=== PATIENT | male | born 1960 | race Caucasian/White ===

== ENCOUNTER 2024-10-17 11:00 | Inpatient (IN) | payer MEDICARE, BC ==
[~2024-10-17] VITALS: Ht 172.7 cm; Wt 81.4 kg
[2024-10-17] VITALS (11 sets, daily range): BP systolic 113–150; BP diastolic 56–84; PULSE 61–90; RESP 10–17; TEMP 97.6–98.4; O2SAT 92–98
--- NOTE | 2024-10-17 11:29 | ELECTROCARDIOGRAPH REPORT ---
[facility] Test Date: 2024-10-17 Test Time: 11:26:45 Pat Name: KUSHAL MELENDEZ Department: SHORT STAY 1ST FLOOR Room: [facility] IN [facility] Gender: M Bioinformatics Associate: IZABEL : 1960 Requested By: MANUELA VICK Order Number: [id number] Reading MD: Dr. SIMI Silvestre Measurements Intervals [place] Rate: 64 P: 39 W[place]: 155 QRS: 5 QRSD: 104 T: 41 QT: 424 QTc: 438 Interpretive Statements Sinus rhythm Electronically Signed On 10-17-2024 16:49:[address] SIMI Silvestre Please click the below link to view image of tracing.
[2024-10-17] MEDS ORDERED: ROSU10TA72 PO (11:50)
[2024-10-17] MEDS ORDERED: CHOL20002 PO (11:50)
[2024-10-17] MEDS ORDERED: LISI10TA27 PO (11:50)
[2024-10-17] MEDS ORDERED: GLUC500T12 PO (11:52)
[2024-10-17] MEDS ORDERED: OMEG1CAP46 PO (11:53)
[2024-10-17] MEDS ORDERED: SACC250C9 PO (11:54)
[2024-10-17] MEDS ORDERED: MELO-102 PO (11:55)
[2024-10-17] MEDS ORDERED: MULT-1249 PO (11:55)
[2024-10-17 12:17] LABS: MEAN PLATELET VOLUME 9.2 FL (7.4-10.4); RED CELL DISTRIBUTION WIDTH 12.8 % (11.5-14.5)
[2024-10-17 12:25] LABS: CREATININE 0.93 MG/DL (0.60-1.10); TOTAL CARBON DIOXIDE 30.1 MMOL/L (24-32); eCRCL 77 ML/MIN; eGFR 82 ML/MIN
[2024-10-17 12:27] LABS: INR 1.0 INR
[2024-10-17] MEDS ORDERED: midazolam 1 mg/ML 2ml injection ONE (13:12)
[2024-10-17] MEDS ORDERED: heparin 1,000unit/ml 10ml vial 10 ML ONE (13:12)
[2024-10-17] MEDS ORDERED: verapamil 2.5 mg/ml inj IV ONE (13:12)
[2024-10-17] MEDS ORDERED: fentaNYL/PF 50MCG/1 ML 2ML syringe ONE (13:12)
[2024-10-17] MEDS ORDERED: LIDOcaine 1% (10mg/ml) 2ml vial ONE (13:12)
[2024-10-17] MEDS ORDERED: nitroGLYCERIN 500mcg/5mL D5W 5 ML IV ONE (13:13)
[2024-10-17] MEDS ORDERED: potassium Cl 20 mEq SR tablet PO PRN (14:30)
[2024-10-17] MEDS ORDERED: magnesium sulf-water 4G/100mL 100 ML IV PRN (14:30)
[2024-10-17] MEDS ORDERED: dextrose 50%-water 50ml dispensing syringe IV PRN (14:30)
[2024-10-17] MEDS ORDERED: potassium Cl 40MEQ/270ML bag 250 ML IV PRN (14:30)
[2024-10-17] MEDS ORDERED: magnesium sulf-water 2g/50mL 50 ML IV PRN (14:30)
[2024-10-17] MEDS ORDERED: ondansetron 4mg rapidly disintigrating tab PO PRN (14:30)
[2024-10-17] MEDS ORDERED: potassium Cl 40MEQ/1/2NS 520ml 520 ML IV PRN (14:30)
[2024-10-17] MEDS ORDERED: potassium CL 10mEq/100ml bag 100 ML IV PRN (14:30)
[2024-10-17] MEDS ORDERED: HYDROcodone/acetaminophen 5mg/325mg tablet PO PRN ×2 (14:30→14:35)
[2024-10-17] MEDS ORDERED: potassium Cl 20mEq/100mL bag 100 ML IV PRN (14:30)
[2024-10-17] MEDS ORDERED: HYDROcodone/acetaminophen 10/325mg tab PO PRN (14:35)
[2024-10-17] MEDS ORDERED: ondansetron/PF 4mg/2ml inj IV PRN (14:35)
--- NOTE | 2024-10-17 14:38 | CONSULTATION REPORT ---
Consult Providers to CC ~ History of Present Illness Primary Medical Doctor: Dr. Favian Steinberg Reason for Admit\Complaint: New onset angina with elevated troponin History of Present Illness is a very nice 63-year-old gentleman who began to note intermittent episodes of anterior chest discomfort associated with exertion several weeks ago. He was seen by his primary care physician yesterday who was referring him to the shot coat tender. However troponins were measured at the time of his primary care visit. These were noted to be elevated. He was therefore taken to the laborer tanbark this morning for left heart catheterization. This revealed severe three-vessel coronary disease with normal left ventricular function. The patient has risk factors include hypertension as well as hyperlipidemia. He is a nonsmoker although he has secondhand smoke exposure. He is nondiabetic. He denies shortness of breath or exertional dyspnea, PND orthopnea. No history of intermittent claudication or TIA symptoms. He does have a history of significant alcohol use his admitting to six drinks per day. He is being admitted at this time for coronary artery bypass grafting. Allergies: Coded Allergies: No Known Allergies (Unverified , 10/17/24) Home Medications Home Medications Active Reported Multivitamin 1 Each Tablet 1 Tab PO DAILY 30 Days Meloxicam 15 Mg Tablet 1 Tab PO DAILY Probiotic (Saccharomyces Boulardii) 250 Mg Capsule 1 Cap PO DAILY 14 Days [place] 3 1,000 mg Softgel ([place]-3 Fatty Acids/Fish Oil) 300 Mg-1,000 Mg Capsule 1 Cap PO DAILY 30 Days WITH MEALS Glucosamine HCl 500 Mg Tablet Vitamin D3 (Cholecalciferol (Vitamin D3)) 50 Mcg (2000 Unit) Capsule 1 Cap PO DAILY 30 Days Lisinopril 10 Mg Tablet 1 Tab PO DAILY Rosuvastatin Calcium 10 Mg Tablet 1 Tab PO HS Past Surgical History Surgical History Comment Recent ORIF of infected right patellar bursa ROS ROS Generally he denies anorexia or malaise, jaundice, pruritus, fever, chills or weight loss. GI has had no nausea or vomiting, diarrhea, constipation, melena or bright red blood per rectum. he denies dysuria, pyuria, hematuria, urgency, hesitancy or frequency. Neuromuscular denies frequent or severe headaches. He has had no change in his visual chapa. He denies difficulty with speech, swallowing, ambulation or coordination. Cardiopulmonary is as noted Exam Vitals: Vital Signs Date Time Temp Pulse Resp B/P (MAP) Pulse Ox O2 Delivery O2 Flow Rate FiO2 10/17/24 12:28 12 General: Well-developed gentleman who appears to be his stated age. HEENT: Normocephalic and atraumatic. Pupils round and reactive to light. No facial asymmetry. Dentition is in good repair. Neck: Supple with midline trachea. Carotid pulses 2+ without overlying bruits. Chest: Normal AP diameter. It was lungs were clear with good aeration throughout. No wheezes, rales or rhonchi. Cardiovascular: Regular rate and rhythm without murmur, S3 or S4. Normal S1 and S2. No rubs. Abdomen: Soft and nontender normoactive bowel sounds. No masses or organomegaly. Extremities: Pulses 2+ in the radial and posterior tibials. No peripheral edema. No evidence of greater lesser saphenous varicosities. Diagnostic Data Last Recorded Lab Results: 10/17/24 1205 10/17/24 1205 Diagnostic Data: Laboratory Tests Test 10/17/24 12:05 Prothrombin Time 10.0 SECONDS (9.0-12.0) INR International Normalized Ratio 1.0 INR Coagulation Comments Additional Plan Mr. Gatica is a very pleasant 63-year-old gentleman who has the recent onset of angina with a non ST elevated [place] within the past two days. Left heart catheterization revealed severe three-vessel coronary disease. We have recommended that he undergo coronary bypass grafting for revascularization. The indications alternatives to surgery as well as the risks, benefits and possible complications associated coronary artery bypass grafting in the setting have been discussed at length with the patient in his family. They state that they understand and accept these and requested that we proceed. All of their questions have been answered to their stated satisfaction. We will begin preoperative workup. Plan surgery for Sunday. We will plan to place a left internal mammary artery to the LAD with the right internal mammary artery the PDA and vein grafts to the diagonal and obtuse marginals. SHANIQUE BRAND III, MD Oct 17, 2024 14:38
--- NOTE | 2024-10-17 16:03 | VASCULAR REPORT ---
Indication: Preoperative Technique: Real-time ultrasound images of the neck vessels with desai-scale, color and wave Doppler were obtained. Comparison: None Findings: Mild atherosclerotic plaque bilaterally. The following peak systolic velocities were recorded in cm/sec: Right internal carotid: 113 Right common carotid: 122 Right external carotid: 95 Right internal/common carotid ratio: 1.3 Left internal carotid: 103 Left common carotid: 147 Left external carotid: 71 Left internal/common carotid ratio: 0.8 Right vertebral artery: Patent with normal antegrade direction of flow. Left vertebral artery: Patent with normal antegrade direction of flow. Impression: No hemodynamically significant stenosis by velocity criteria.
--- NOTE | 2024-10-17 16:06 | VASCULAR REPORT ---
ULTRASOUND VENOUS MAPPING LOWER EXTREMITIES INDICATION: Preoperative venous mapping COMPARISON: None TECHNIQUE: Duplex Doppler evaluation of the superficial veins of the right and left lower extremities was performed including color Doppler and spectral/pulsed waveform analysis. FINDINGS: Measurements of the lower extremity superficial veins are provided below. RIGHT GREAT SAPHENOUS VEIN (GSV): 3.8 mm at the proximal thigh, normal compressibility with no mural thickening or thrombosis. 3.2 mm at the mid thigh, normal compressibility with no mural thickening or thrombosis. 2.9 mm at the distal thigh, normal compressibility with no mural thickening or thrombosis. 3.2 mm at the proximal calf, normal compressibility with no mural thickening or thrombosis. 2.1 mm at the mid calf, normal compressibility with no mural thickening or thrombosis. 1.5 mm at the distal calf, normal compressibility with no mural thickening or thrombosis. The GSV is patent on duplex Doppler evaluation. LEFT GREAT SAPHENOUS VEIN (GSV): 4.7 mm at the proximal thigh, normal compressibility with no mural thickening or thrombosis. 3.1 mm at the mid thigh, normal compressibility with no mural thickening or thrombosis. 2.8 mm at the distal thigh, normal compressibility with no mural thickening or thrombosis. 2.9 mm at the proximal calf, normal compressibility with no mural thickening or thrombosis. 2.1 mm at the mid calf, normal compressibility with no mural thickening or thrombosis. 1.3 mm at the distal calf, normal compressibility with no mural thickening or thrombosis. The GSV is patent on duplex Doppler evaluation. IMPRESSION: Lower extremity superficial venous mapping as detailed above.
[2024-10-17 17:51] LABS: MEAN PLATELET VOLUME 9.1 FL (7.4-10.4); RED CELL DISTRIBUTION WIDTH 12.7 % (11.5-14.5)
[2024-10-17 17:55] LABS: CREATININE 0.77 MG/DL (0.60-1.10); TOTAL CARBON DIOXIDE 29.5 MMOL/L (24-32); eCRCL 93 ML/MIN; eGFR > 90 ML/MIN
[2024-10-17 17:58] LABS: APTT 26 SECONDS (22-32); INR 1.0 INR
--- NOTE | 2024-10-17 18:46 | RADIOLOGY REPORT ---
CHEST RADIOGRAPH Indication: PRE CARDIAC SURGERY Technique: DI CHEST,TWO VIEWS Comparison: None FINDINGS: The cardiac silhouette is unremarkable. The lungs demonstrate no pulmonary airspace consolidation. The pulmonary vasculature is unremarkable. There is no pleural effusion. There is no pneumothorax. Jlac-qu-[id number] thoracic degenerative disc disease. IMPRESSION: No pulmonary airspace consolidation.
[2024-10-17] MEDS: metoprolol tartrate 12.5mg (1/2 tablet) PO SCH (20:08)
[2024-10-18] VITALS (8 sets, daily range): BP systolic 112–148; BP diastolic 58–80; PULSE 65–82; RESP 12–19; TEMP 97–97.8; O2SAT 94–99
[2024-10-18] MEDS: multivitamins, therapeutics tablet PO SCH (07:56)
[2024-10-18] MEDS: cholecalciferol (vitamin D3) 1,000 unit (25mcg) tablet PO SCH (07:57)
[2024-10-18] MEDS: MELOXICAM 7.5 MG TABLET PO SCH (07:58)
--- NOTE | 2024-10-18 08:16 | ELECTROCARDIOGRAPH REPORT ---
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 SIMI Silvestre Measurements Intervals [place] Rate: 64 P: 23 [place]: 171 QRS: -6 QRSD: 105 T: 28 QT: 409 QTc: 422 Interpretive Statements Sinus rhythm Electronically Signed On 10-18-2024 20:36:[address] SIMI Silvestre Please click the below link to view image of tracing.
--- NOTE | 2024-10-18 09:57 | PROGRESS NOTE ---
Progress Note CV Providers to CC ~ Central Line/PICC still needed: N\A Valerie Indications Met/Not Met: F/C Indications Not Met Antibiotics Ordered?: No Subjective Subjective Patient had a peaceful night. No chest pain. Objective Vitals Vital Signs Date Time Temp Pulse Resp B/P (MAP) Pulse Ox O2 Delivery O2 Flow Rate FiO2 10/18/24 08:52 14 97 Room Air 10/18/24 07:57 69 10/18/24 06:00 97.6 138/69 (92) Lab Results: 10/17/24 1723 10/17/24 1723 Objective Lungs are very clear with good aeration throughout. No wheezes, rales or rhonchi. Cardiac exam regular rate and rhythm without murmur, S3 or S4. No peripheral edema. Coagulation Studies Laboratory Tests Test 10/17/24 17:23 Prothrombin Time 10.2 SECONDS (9.0-12.0) INR International Normalized Ratio 1.0 INR Activated Partial Thromboplast Time 26 SECONDS (22-32) Coagulation Comments Cardiac Rhythm: Sinus Rhythm Problem\Assessment\Plan Additional Plan Patient had a quiet night. Ready for CABG in a.m.. Vein mapping looks good. Carotids clean. The indications alternatives to surgery as well as the risks, benefits and possible complications associated with coronary artery bypass grafting in the setting were discussed again with Mr. And Mrs. Gatica. They state that they understand and accept these and requested that we proceed. All of their questions have been answered to their stated satisfaction. Plan surgery for 0 900 tomorrow SHANIQUE BRAND III, MD Oct 18, 2024 09:57
[2024-10-18 13:13] LABS: ABG BASE EXCESS -1.9 mmol/L (-2.0-3.0); ABG HCO3 21.9 mmol/L (21.0-28.0); ABG OXYGEN SATURATION 91.3 % (94.0-98.0); ABG PCO2 (T) 34.4 mmHg (35.0-48.0); ABG PH (T) 7.421 (7.350-7.450); ABG PO2 (T) 58.6 mmHg (83.0-108.0); ALLEN'S TEST POSITIVE; FCOHb 1.0 % (0.5-1.5); FHHb 8.6 % (0.0-5.0); FIO2 21.0 mmHg/%; FMetHb 0.1 % (0.0-1.5); FO2Hb 90.3 % (94.0-98.0); MODE ROOM AIR; PATIENT TEMPERATURE 37.0; TOTAL HEMOGLOBIN 14.5 G/dl (13.5-17.5)
[2024-10-18 15:29] LABS: MEAN PLATELET VOLUME 9.2 FL (7.4-10.4); RED CELL DISTRIBUTION WIDTH 13.2 % (11.5-14.5)
[2024-10-18 15:37] LABS: CREATININE 1.02 MG/DL (0.60-1.10); TOTAL CARBON DIOXIDE 29.6 MMOL/L (24-32); eCRCL 70 ML/MIN; eGFR 73 ML/MIN
[2024-10-18] MEDS: MESSAGE TO PHARMACY IJ ONE (20:09)
[2024-10-18] MEDS: MESSAGE TO NURSING PO ONE ×5 (20:10→20:12)
[2024-10-19] VITALS (27 sets, daily range): BP systolic 92–143; BP diastolic 53–83; PULSE 57–108; RESP 9–22; TEMP 97.3–97.6; O2SAT 93–99
[2024-10-19] MEDS ORDERED: insulin glargine (Lantus) pen - multi-dose SQ PRN ×2 (05:30→12:15)
[2024-10-19] MEDS ORDERED: BUPIVAcaine 0.5% inj/PF 30 ML ONE ×2 (05:58→08:32)
[2024-10-19] MEDS ORDERED: vancomycin 1,000mg inj ONE (05:58)
[2024-10-19] MEDS ORDERED: heparin 10,000 units/1 ML INJ ONE ×2 (05:58→09:18)
[2024-10-19 07:13] LABS: INR 1.0 INR
[2024-10-19] MEDS: papaverine 30 mg/ml 2ml inj. ICAR ONE (08:30)
[2024-10-19] MEDS ORDERED: propofol inj 20 ML IV ONE (08:30)
[2024-10-19] MEDS: heparin 10,000 units/1 ML INJ IR ONE (08:30)
[2024-10-19] MEDS: BUPIVAcaine 0.5% inj/PF 30 ml vial IJ ONE (08:30)
[2024-10-19] MEDS ORDERED: midazolam 1 mg/ML 2ml injection ONE (08:31)
[2024-10-19] MEDS ORDERED: fentaNYL /PF 50mcg/ml 5ml ampule ONE ×2 (08:33)
[2024-10-19] MEDS ORDERED: MIDAZolam 1 MG/ML 5ML VIAL ONE (08:33)
[2024-10-19] MEDS ORDERED: albumin (human) 25% 100 ML IV solution IV ONE (09:18)
[2024-10-19] MEDS ORDERED: NORepinephrine 1 mg/ml inj IV ONE (09:18)
[2024-10-19] MEDS ORDERED: methylPREDNISolone sod succ 1000mg vial ONE (09:18)
[2024-10-19] MEDS ORDERED: sodium bicarbonate (8.4%) 1 mEq/ml syringe ONE (09:18)
[2024-10-19] MEDS ORDERED: niCARDipine in NS 40mg/200ml (0.2mg/ml) IVPB IV ONE (09:18)
[2024-10-19] MEDS ORDERED: calcium chloride 100 MG/1 ML inj IV ONE (09:18)
[2024-10-19] MEDS ORDERED: mannitol 12.5gm/50mL VIAL IV ONE (09:18)
[2024-10-19] MEDS ORDERED: protamine sulfate 10mg/ml inj. ONE (09:18)
[2024-10-19] MEDS ORDERED: aminocaproic acid 250 MG/1 ML inj. ONE (09:18)
[2024-10-19] MEDS ORDERED: MAGNESIUM SULFATE 4 MEQ/ML (5gm/10ml) injection ONE (09:18)
[2024-10-19 10:14] LABS: ACTIVATED CLOTTING TIME 549.0 SEC (101-148)
[2024-10-19 10:47] LABS: ABG BASE EXCESS 1.3 mmol/L (-2.0-3.0); ABG HCO3 26.2 mmol/L (21.0-28.0); ABG OXYGEN SATURATION 99.2 % (94.0-98.0); ABG PCO2 42.7 mmHg (35.0-48.0); ABG PH 7.406 (7.350-7.450); CL (ABG) 101 mmol/L (98-107); FCOHb 0.1 % (0.5-1.5); FHHb 0.8 % (0.0-5.0); FMetHb 0.1 % (0.0-1.5); FO2Hb 99.0 % (94.0-98.0); GLUCOSE (ABG) 135 mg/dl (65-95); IONIZED CA (ABG) 1.07 mmol/L (1.15-1.33); K (ABG) 4.5 mmol/L (3.40-4.50); TOTAL HEMOGLOBIN 10.7 G/dl (13.5-17.5)
[2024-10-19] MEDS: Insulin Reg/NS 100units/100mL 100 ML IV SCH ×2 (10:52→12:15)
[2024-10-19] MEDS: ceFAZolin 2gm/dext,iso 50mL 50 ML IV ONE (10:52)
[2024-10-19] MEDS: mupirocin 2% nasal ointment 1gm UD NS SCH ×2 (10:53→19:49)
[2024-10-19] MEDS: vancomycin/NS 1 GM ADD-VANTAGE 250 ML IV ONE (10:53)
[2024-10-19] MEDS: midazolam 1 mg/ML 2ml injection IV ONE (10:53)
[2024-10-19] MEDS: ringers solution, lacted 1,000 ML IV SCH (10:53)
[2024-10-19 10:56] LABS: ACTIVATED CLOTTING TIME 480.0 SEC (101-148)
[2024-10-19 11:13] LABS: ABG BASE EXCESS -1.8 mmol/L (-2.0-3.0); ABG HCO3 23.4 mmol/L (21.0-28.0); ABG OXYGEN SATURATION 99.3 % (94.0-98.0); ABG PCO2 41.5 mmHg (35.0-48.0); ABG PH 7.369 (7.350-7.450); CL (ABG) 102 mmol/L (98-107); FCOHb 0.1 % (0.5-1.5); FHHb 0.7 % (0.0-5.0); FMetHb 0.3 % (0.0-1.5); FO2Hb 98.9 % (94.0-98.0); GLUCOSE (ABG) 149 mg/dl (65-95); IONIZED CA (ABG) 1.11 mmol/L (1.15-1.33); K (ABG) 4.1 mmol/L (3.40-4.50); TOTAL HEMOGLOBIN 11.2 G/dl (13.5-17.5)
[2024-10-19 11:40] LABS: ABG BASE EXCESS 0.2 mmol/L (-2.0-3.0); ABG HCO3 25.3 mmol/L (21.0-28.0); ABG OXYGEN SATURATION 99.3 % (94.0-98.0); ABG PCO2 43.1 mmHg (35.0-48.0); ABG PH 7.387 (7.350-7.450); CL (ABG) 101 mmol/L (98-107); FCOHb 0.2 % (0.5-1.5); FHHb 0.7 % (0.0-5.0); FMetHb 0.2 % (0.0-1.5); FO2Hb 98.9 % (94.0-98.0); GLUCOSE (ABG) 145 mg/dl (65-95); IONIZED CA (ABG) 1.38 mmol/L (1.15-1.33); K (ABG) 4.0 mmol/L (3.40-4.50); TOTAL HEMOGLOBIN 11.1 G/dl (13.5-17.5)
[2024-10-19 11:58] LABS: ABG BASE EXCESS -0.8 mmol/L (-2.0-3.0); ABG HCO3 24.9 mmol/L (21.0-28.0); ABG PCO2 45.8 mmHg (35.0-48.0); ABG PH 7.353 (7.350-7.450); CL (ABG) 103 mmol/L (98-107); FCOHb 0.2 % (0.5-1.5); FHHb 29.5 % (0.0-5.0); FMetHb 0.3 % (0.0-1.5); FO2Hb 70.0 % (94.0-98.0); GLUCOSE (ABG) 127 mg/dl (65-95); IONIZED CA (ABG) 1.29 mmol/L (1.15-1.33); K (ABG) 3.5 mmol/L (3.40-4.50); TOTAL HEMOGLOBIN 10.8 G/dl (13.5-17.5)
[2024-10-19 12:01] LABS: ACTIVATED CLOTTING TIME 109 SEC (101-148)
[2024-10-19] MEDS ORDERED: mineral oil 133ml enema RC PRN (12:15)
[2024-10-19] MEDS ORDERED: potassium Cl 40MEQ/1/2NS 520ml 520 ML IV PRN (12:15)
[2024-10-19] MEDS ORDERED: bisacodyl 10mg suppository rectal RC PRN (12:15)
[2024-10-19] MEDS ORDERED: potassium CL 10mEq/100ml bag 100 ML IV PRN (12:15)
[2024-10-19] MEDS ORDERED: potassium Cl 20 mEq SR tablet PO PRN (12:15)
[2024-10-19] MEDS ORDERED: dextrose 50%-water 50ml dispensing syringe IV PRN (12:15)
[2024-10-19] MEDS ORDERED: potassium Cl 40MEQ/270ML bag 250 ML IV PRN (12:15)
[2024-10-19] MEDS ORDERED: sodium phosphate inj. 30 MMOL in dextrose 5%-water 250 ML IV PRN (12:15)
[2024-10-19] MEDS ORDERED: magnesium sulf-water 4G/100mL 100 ML IV PRN (12:15)
[2024-10-19] MEDS ORDERED: niCARDipine-NS 40mg/200ml IVPB 200 ML IV PRN (12:15)
--- NOTE | 2024-10-19 12:26 | OPERATIVE REPORT ---
Operative Report Operative Report Cardiovascular surgery operative report 20 October 2024 Preoperative diagnosis: Severe three-vessel coronary disease, non ST elevated [place] Postop diagnosis: Same Procedure: Coronary artery bypass grafting x5 placing the left internal mammary artery to the OM, the right internal mammary artery to the LAD, reverse saphenous vein graft to the diagonal and a sequential reverse saphenous vein graft to the PDA and posterior left ventricular branches of the right Surgeon: Dr. Fish Donahue assistant plant control operator: Dr. Alvin Salinas and Ricardo Ybarra PA-C Anesthesia: General via endotracheal tube Dr. Pereira Complications: None EBL: 200 mL Procedure: The patient is taken to the operating room and placed in the supine position. Following the induction of general oral endotracheal anesthesia and the placement of appropriate lines the chest, abdomen and bilateral lower extr emities were prepped and draped sterilely. A portion of greater saphenous vein was removed from the right leg endoscopically. Side branches were controlled with electrocautery. It was ligated proximally and distally and then excised. It was flushed with heparinized blood and side branches ligated with 4-0 silk. It was set aside. The leg incisions were closed in two layers with absorbable suture. At the same time a median sternotomy was performed in both pleural spaces were widely opened. The left and right internal mammary artery was dissected free from the anterior chest wall. The left was done pedicled with a right skeletonized. The patient was systemically heparinized and after 3 minutes the JAVIER were divided at the diaphragm. The pericardium was opened in midline and suspended. Single aortic and dual stage right atrial cannula placed for cardiopulmonary bypass. The distal anastomosis were performed on a beating heart using cardiopulmonary bypass for hemodynamic support. An epicardial stabilizer was utilized to facilitate the distal anastomosis. They were done with running seven 0 Prolene, probing prior to tying the suture line to ensure patency. The 1st bypass performed was the right internal mammary artery to the LAD. A slit was cut in the right superior pericardium to allow the JAVIER across the ascending aorta to reach the LAD. It was cut to length and distal end was spatulated. It was then anastomosed in end-to-side fashion to the mid LAD. The bulldog clamp was removed from the JAVIER pedicle to restore flow. A slit was then cut in the left superior pericardium to allow the left JAVIER to pass posteriorly into the pericardial well. It was cut to length and the distal end was spatulated. It was then anastomosed in end-to-side fashion to the obtuse marginal. The pedicle was tacked to the epicardium with interrupted five 0 Prolene sutures. A sequential vein graft was fashioned of the right system placing an end-to-side anastomosis to the PLV with a ioyb-wv-fzyj anastomosis of the PDA. A more extended arteriotomy was made in the PDA through an area of stenosis. Finally a portion of reverse saphenous vein graft was anastomosed in end-to-side fashion to the diagonal. The patient has coronaries had extensive posterior calcified plaque. The diagonal PDA and posterior left ventricular branches were all 1.25 mm vessels. The OM and the LAD were 1.5 mm vessels. A partial occluding clamp was then placed in the ascending aorta and two aortotomies were created with a 4 mm punch. This allowed the proximal anastomosis with the vein grafts to be performed. Each was done in end-to-side fashion with running six 0 Prolene. Proximal markers were placed. The clamp was removed and the vein grafts were de-aired. Flow restored to the entire coronary circulation. Temporary pacing wires placed the anterior surface of the right ventricle. Ventilation was resumed and the patient was weaned from cardiopulmonary bypass. He was decannulated in standard fashion and protamine solution was administered to reverse heparinization. Careful hemostasis was achieved throughout the mediastinum. The pericardial fat was then loosely approximated in midline taking care to interpose thymic fat between the right JAVIER and the posterior plate of the sternum. A 28 [place] Frank drain was placed each pleural space with a 36 [place] straight chest tube placed anterior to the mediastinum. These were all secured to skin with 1. Silk. The chest was then closed by reapproximating the sternum in the midline with interrupted tupnre-cd-oebkyg of 7. Stainless steel wire as well as zip fix sternal bands. The midline fascia, subcutaneous tissue and skin were closed in layers. Sterile dressings were applied and the chest tube was attached to water-seal. The patient was then returned to the ICU in critical but stable condition, having tolerated the procedure satisfactorily. There were no complications. Sponge, needle and instrument counts were correct x2 at the end of the case. Ricardo Ybarra PA-C was present for and assisted throughout the entire procedure. FISH DONAHUE III, MD Oct 19, 2024 12:26
--- NOTE | 2024-10-19 12:40 | ELECTROCARDIOGRAPH REPORT ---
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 SIMI Silvestre Measurements Intervals [place] Rate: 93 P: 70 [place]: 191 QRS: 50 QRSD: 167 T: -2 QT: 429 QTc: 534 Interpretive Statements Sinus rhythm Right bundle branch block Electronically Signed On 10-19-2024 14:44:[address] SIMI Silvestre Please click the below link to view image of tracing.
[2024-10-19 12:43] LABS: ABG BASE EXCESS -2.9 mmol/L (-2.0-3.0); ABG HCO3 21.9 mmol/L (21.0-28.0); ABG OXYGEN SATURATION 97.4 % (94.0-98.0); ABG PCO2 (T) 35.9 mmHg (35.0-48.0); ABG PH (T) 7.396 (7.350-7.450); ABG PO2 (T) 102.0 mmHg (83.0-108.0); FCOHb 0.3 % (0.5-1.5); FHHb 2.6 % (0.0-5.0); FIO2 100.0 mmHg/%; FMetHb 0.0 % (0.0-1.5); FO2Hb 97.1 % (94.0-98.0); MODE Simv VC; PATIENT TEMPERATURE 35.6; PEEP 5 cm H2O; RESPIRATORY RATE 12 b/min; TIDAL VOLUME 500 mL; TOTAL HEMOGLOBIN 12.9 G/dl (13.5-17.5)
[2024-10-19] MEDS: albumin (Human) 5% 250ml 250 ML IV PRN (12:55)
[2024-10-19 12:57] LABS: MEAN PLATELET VOLUME 9.1 FL (7.4-10.4); RED CELL DISTRIBUTION WIDTH 12.6 % (11.5-14.5)
[2024-10-19] MEDS ORDERED: rocuronium 10mg/ml inj IV ONE ×4 (13:04)
[2024-10-19] MEDS ORDERED: albumin (Human) 5% 250ml 250 ML IV ONE (13:04)
[2024-10-19] MEDS ORDERED: ePHEDrine 50MG/ML INJ. ONE (13:05)
[2024-10-19 13:09] LABS: APTT 23 SECONDS (22-32); INR 1.1 INR
[2024-10-19] MEDS: nitroGLYCERIN-Tridil 50MG/D5W 250 ML IV SCH (13:11)
[2024-10-19] MEDS: morphine 4 MG/ML inj SYRINge IV PRN ×2 (13:12→15:44)
[2024-10-19 13:14] LABS: CREATININE 0.91 MG/DL (0.60-1.10); PHOSPHORUS 2.6 MG/DL (2.3-4.5); TOTAL CARBON DIOXIDE 26.5 MMOL/L (24-32); eCRCL 78 ML/MIN; eGFR 84 ML/MIN
--- NOTE | 2024-10-19 13:24 | RADIOLOGY REPORT ---
CLINICAL INFORMATION: 63 years old, Male; POST OP. TECHNIQUE: Single AP portable chest radiograph was obtained. COMPARISON: DI CHEST,TWO VIEWS on DOS: 10/17/24 FINDINGS: Satisfactory positioning of the endotracheal tube, enteric tube, Clifford-Michelle catheter, right internal jugular central venous catheter, bilateral chest tubes, and mediastinal drain. There are ill-defined patchy airspace opacities and areas of subsegmental atelectasis. No pneumothorax or pleural effusion visualized. Right costophrenic angle is partially excluded from the dzipb-kh-wgzl of the exam. Heart size is within normal limits. Sternotomy wires appear intact. Pulmonary vasculature appears normal. IMPRESSION: 1. Satisfactory positioning of the endotracheal tube, enteric tube, Clifford-Michelle catheter, right internal jugular central venous catheter, bilateral chest tubes, and mediastinal drain. 2. Ill-defined patchy bilateral airspace opacities and areas of subsegmental atelectasis. No pneumothorax. No pleural effusion visualized. Right costophrenic angle is partially excluded from the oryhu-lr-xkuw of the exam.
[2024-10-19] MEDS: potassium Cl 20mEq/100mL bag 100 ML IV PRN (13:46)
[2024-10-19] MEDS: magnesium sulf-water 2g/50mL 50 ML IV PRN (13:47)
[2024-10-19 14:30] LABS: ABG BASE EXCESS -2.8 mmol/L (-2.0-3.0); ABG HCO3 22.2 mmol/L (21.0-28.0); ABG OXYGEN SATURATION 98.8 % (94.0-98.0); ABG PCO2 (T) 37.5 mmHg (35.0-48.0); ABG PH (T) 7.385 (7.350-7.450); ABG PO2 (T) 151.6 mmHg (83.0-108.0); FCOHb 0.3 % (0.5-1.5); FHHb 1.2 % (0.0-5.0); FIO2 90.0 mmHg/%; FMetHb 0.0 % (0.0-1.5); FO2Hb 98.5 % (94.0-98.0); MODE VENT - SIMV; PATIENT TEMPERATURE 35.9; PEEP 10 cm H2O; RESPIRATORY RATE 12 b/min; TIDAL VOLUME 500 mL; TOTAL HEMOGLOBIN 10.7 G/dl (13.5-17.5)
[2024-10-19] MEDS: albumin (Human) 5% 250ml 250 ML IV ONE (14:40)
[2024-10-19] MEDS ORDERED: NORepinephrine 8mg/ 250ml NS 250 ML IV SCH (15:10)
[2024-10-19] MEDS: NORepinephrine 8mg/ 250ml NS 250 ML IV SCH (15:28)
[2024-10-19] MEDS ORDERED: UNABLE TO OBTAIN (15:53)
[2024-10-19] MEDS: ceFAZolin/D5W- 1GM premix 50 ML IV SCH (16:21)
[2024-10-19 17:40] LABS: ABG BASE EXCESS -4.5 mmol/L (-2.0-3.0); ABG HCO3 19.6 mmol/L (21.0-28.0); ABG OXYGEN SATURATION 96.5 % (94.0-98.0); ABG PCO2 (T) 31.2 mmHg (35.0-48.0); ABG PH (T) 7.412 (7.350-7.450); ABG PO2 (T) 95.3 mmHg (83.0-108.0); FCOHb 0.2 % (0.5-1.5); FHHb 3.5 % (0.0-5.0); FIO2 50.0 mmHg/%; FMetHb 0.3 % (0.0-1.5); FO2Hb 96.0 % (94.0-98.0); MODE VENT - CPAP; PATIENT TEMPERATURE 36.2; PEEP 7 cm H2O; TOTAL HEMOGLOBIN 10.2 G/dl (13.5-17.5)
--- NOTE | 2024-10-19 18:20 | CARDIOLOGY REPORT ---
APPROVED REPORT EXAM: Intraoperative transesophageal echocardiogram with color flow Doppler. Study contains both Pre- and Postoperative images. Patient Location: CVOR Blood Pressure: 124/64 mmHg Heart Rate: 85 bpm Rhythm: Sinus Rhythm Indications CORONARY ARTERY DISEASE CABG X 5 COURTNEY probe passed by : oMlly Mejia MD Linotype Mechanic: Johanna Barbosa MD / Surgeon : Britany Donahue MD No Previous Echo LEFT VENTRICLE PRE: Normal LV size and wall thickness. Overall systolic function is normal. EF estimate at 55%. POST: Improved contractility appreciated. Overall LVEF is 55-60%. RIGHT VENTRICLE PRE: RV appears to be normal size with normal contractility. POST: Unchanged ATRIA PRE: The left atrium size is normal. Left atrial appendage is visualized in multiple planes and appears normal without debris. POST: Unchanged AORTIC VALVE PRE: Trileaflet AV appears mildly sclerotic without stenosis. Trace insufficiency. POST: Unchanged MITRAL VALVE PRE: Mild MV annular thickening without stenosis. Trace regurgitation at a BP of 124/64 mmHg. POST: Unchanged TRICUSPID VALVE PRE: TV appears structurally normal with trace regurgitation. POST: Unchanged PULMONIC VALVE PRE: Normal PV without stenosis. Trace insufficiency. [place]-Michelle catheter in the right heart across the pulmonic valve. POST: Unchanged GREAT VESSELS PRE: The aortic root appears to be normal in size. The proximal ascending aorta appears normal in size. POST: Unchanged PERICARDIUM PRE: Normal pericardium. No pericardial effusion seen. POST: Unchanged CONCLUSION PRE: Normal LV size and wall thickness. Overall systolic function is normal. EF estimate at 55%. POST: Improved contractility appreciated. Overall LVEF is 55- 60%. PRE: RV appears to be normal size with normal contractility. POST: Unchanged PRE: The left atrium size is normal. Left atrial appendage is v isualized in multiple planes and appears normal without debris. POST: Unchanged PRE: Trileaflet AV appears mildly sclerotic without stenosis. Trace insufficiency. POST: Unchanged PRE: Mild MV annular thickening without stenosis. Trace regurgitation at a BP of 124/64 mmHg. POST: Unchanged PRE: TV appears structurally normal with trace regurgitation. POST: Unchanged PRE: Normal pericardium. No pericardial effusion seen. POST: Unchanged Conclusion PRE: Normal LV size and wall thickness. Overall systolic function is normal. EF estimate at 55%. POST: Improved contractility appreciated. Overall LVEF is 55-60%. PRE: RV appears to be normal size with normal contractility. POST: Unchanged PRE: The left atrium size is normal. Left atrial appendage is visualized in multiple planes and appears normal without debris. POST: Unchanged PRE: Trileaflet AV appears mildly sclerotic without stenosis. Trace insufficiency. POST: Unchanged PRE: Mild MV annular thickening without stenosis. Trace regurgitation at a BP of 124/64 mmHg. POST: Unchanged PRE: TV appears structurally normal with trace regurgitation. POST: Unchanged PRE: Normal pericardium. No pericardial effusion seen. POST: Unchanged
[2024-10-19 18:30] LABS: MEAN PLATELET VOLUME 8.7 FL (7.4-10.4); RED CELL DISTRIBUTION WIDTH 12.7 % (11.5-14.5)
[2024-10-19 18:48] LABS: CREATININE 1.21 MG/DL (0.60-1.10); PHOSPHORUS 2.1 MG/DL (2.3-4.5); TOTAL CARBON DIOXIDE 23.7 MMOL/L (24-32); eCRCL 59 ML/MIN; eGFR 60 ML/MIN
[2024-10-19] MEDS: ondansetron/PF 4mg/2ml inj IV PRN (18:48)
[2024-10-19] MEDS: ketorolac trometh 15mg/ml vial 15 MG/ML ML IM SCH (19:49)
[2024-10-19] MEDS: vancomycin/NS 1 GM ADD-VANTAGE 250 ML IV SCH (19:50)
[2024-10-19] MEDS: sodium phosphate inj. 15 MMOL in dextrose 5%-water 250 ML IV PRN (20:30)
[2024-10-19] MEDS: metoclopramide 5 mg/ml inj IV PRN (22:53)
[2024-10-19] MEDS: HYDROcodone/acetaminophen 10/325mg tab PO PRN (23:02)
[2024-10-20] VITALS (25 sets, daily range): BP systolic 86–121; BP diastolic 43–65; PULSE 82–104; RESP 8–20; O2SAT 90–96
[2024-10-20 01:03] LABS: MEAN PLATELET VOLUME 8.7 FL (7.4-10.4); RED CELL DISTRIBUTION WIDTH 12.8 % (11.5-14.5)
[2024-10-20 01:18] LABS: CREATININE 1.04 MG/DL (0.60-1.10); PHOSPHORUS 5.0 MG/DL (2.3-4.5); TOTAL CARBON DIOXIDE 26.3 MMOL/L (24-32); eCRCL 69 ML/MIN; eGFR 72 ML/MIN
[2024-10-20] MEDS: ketorolac trometh 15mg/ml vial 15 MG/ML ML IV SCH (01:27)
--- NOTE | 2024-10-20 05:48 | RADIOLOGY REPORT ---
CHEST RADIOGRAPH Indication: POST OP Technique: Single frontal view of the chest was obtained Comparison: DI CHEST,SINGLE VIEW on DOS: 10/19/24 FINDINGS: Lines and Tubes: The endotracheal tube has been removed. Enteric tube been removed. There is a right central venous catheter tip terminating in the superior vena cava. There are bilateral chest tubes. Status post median sternotomy. Carrier-Michelle catheter has been removed. Lungs: Mild bilateral subsegmental atelectasis. Pleura: No effusion. No pneumothorax. Cardiomediastinal contours: Stable cardiomegaly. Bones: No acute osseous abnormality. IMPRESSION: 1. Interval removal of the endotracheal tube, enteric tube, and Carrier-Michelle catheter. 2. Mild bilateral subsegmental atelectasis.
[2024-10-20 06:38] LABS: ACT @ 1.70 U 244 SEC (193-297); ACT @ 2.84 U 313 SEC (260-420); BASELINE ACT 121 SEC (101-148); PATIENT WEIGHT 77.0k KG
[2024-10-20] MEDS: WHISKEY PO SCH (07:30)
--- NOTE | 2024-10-20 07:54 | PROGRESS NOTE ---
Progress Note CV Providers to CC ~ Antibiotics Ordered?: No Subjective Subjective S/P CABG x 5 POD # 1. Alert, up to chair. Very sore. Toradol given about 30 min. ago with not much addl relief. Objective Vitals Vital Signs Date Time Temp Pulse Resp B/P (MAP) Pulse Ox O2 Delivery O2 Flow Rate FiO2 10/20/24 07:47 87 18 94 Nasal Cannula* 2 28 10/20/24 07:00 109/57 (74) 105/60 (75) 10/20/24 05:00 97.7 Lab Results: 10/20/24 0044 10/20/24 0044 Objective Lungs - poor insp. effort. CXR with some bilat atelectasis Heart - RRR, SR Abd/Extr - OK, no nausea Incisions - CDI except old blood lower extr drain site. Coagulation Studies Laboratory Tests Test 10/19/24 09:19 10/19/24 12:06 10/19/24 12:40 Patient Sex (Coag) M Patient Height (Coag) 172cm Patient Weight (Coag) 77.0k KG Patient Blood Volume 5557 ML Pump Volume 1500 ML Total Blood Volume 7057 ML Projected Heparin Concentration 3.5 MG/KG Heparin [place] 76 Calculated Heparin Bolus 95021 UNITS Activated Coagulation Time Baseline 121 SEC (101-148) Activated Coag Time 1.70 U/mL 244 SEC (193-297) Activated Coag Time 2.84 U/mL 313 SEC (260-420) Heparin Level (COAG) 0 MG/KG Calculated Heparin Req (Hep Assay) 68395 UNITS Calculated Protamine Req (Hep Assay 0 MG Activated Clotting Time 109 SEC (101-148) Prothrombin Time 11.2 SECONDS (9.0-12.0) INR International Normalized Ratio 1.1 INR Activated Partial Thromboplast Time 23 SECONDS (22-32) Coagulation Comments Cardiac Rhythm: Sinus Rhythm Problem\Assessment\Plan Additional Plan POD # 1 Sandor out Had been on some low dose levophed. Add lidocaine patches to Rx Ambulate Advance diet. Sepsis Screening Reassessment Date: Oct 20, 2024 Supervising Co-signing Provider: KALLI Barkley Oct 20, 2024 07:54
[2024-10-20] MEDS ORDERED: papaverine 30 mg/ml 2ml inj. ONE (08:00)
[2024-10-20] MEDS ORDERED: glucagon, human recombinant 1mg kit SUBCUT PRN (08:00)
[2024-10-20] MEDS: metoprolol tartrate 12.5mg (1/2 tablet) PO SCH (08:00)
[2024-10-20] MEDS ORDERED: dextrose 50%-water 50ml dispensing syringe IV PRN ×2 (08:00)
[2024-10-20] MEDS ORDERED: DEXTROSE 15 GM of carb/4 tabs (each vial/BOTTLE has 4 tablets) PO PRN ×2 (08:00)
[2024-10-20 08:06] LABS: ABG BASE EXCESS 1.3 mmol/L (-2.0-3.0); ABG HCO3 24.5 mmol/L (21.0-28.0); ABG PCO2 32.9 mmHg (35.0-48.0); ABG PH 7.489 (7.350-7.450); FCOHb 0.3 % (0.5-1.5); FIO2 80.0 mmHg/%; FO2Hb 98.7 % (94.0-98.0); TOTAL HEMOGLOBIN 8.6 G/dl (13.5-17.5)
[2024-10-20 08:07] LABS: ABG OXYGEN SATURATION 99.1 % (94.0-98.0); CL (ABG) 100 mmol/L (98-107); FHHb 0.9 % (0.0-5.0); FMetHb 0.1 % (0.0-1.5); GLUCOSE (ABG) 113 mg/dl (65-95); IONIZED CA (ABG) 0.96 mmol/L (1.15-1.33); K (ABG) 3.7 mmol/L (3.40-4.50)
[2024-10-20 08:09] LABS: ABG BASE EXCESS -1.0 mmol/L (-2.0-3.0); ABG HCO3 22.0 mmol/L (21.0-28.0); ABG OXYGEN SATURATION 98.3 % (94.0-98.0); ABG PCO2 31.9 mmHg (35.0-48.0); ABG PH 7.457 (7.350-7.450); FCOHb 0.0 % (0.5-1.5); FHHb 1.7 % (0.0-5.0); FMetHb 0.1 % (0.0-1.5); FO2Hb 98.2 % (94.0-98.0); TOTAL HEMOGLOBIN 13.8 G/dl (13.5-17.5)
[2024-10-20 08:10] LABS: CL (ABG) 102 mmol/L (98-107); GLUCOSE (ABG) 88 mg/dl (65-95); IONIZED CA (ABG) 1.21 mmol/L (1.15-1.33); K (ABG) 3.9 mmol/L (3.40-4.50)
[2024-10-20 08:28] LABS: ABG PO2 346.8 mmHg (83.0-108.0)
[2024-10-20 08:28] LABS: ABG PO2 324.5 mmHg (83.0-108.0)
[2024-10-20 08:29] LABS: ABG PO2 322.3 mmHg (83.0-108.0)
[2024-10-20 08:31] LABS: ABG OXYGEN SATURATION 70.4 % (94.0-98.0); ABG PO2 39.2 mmHg (83.0-108.0)
[2024-10-20] MEDS: acetaminophen 1,000mg/100ml IV 100 ML IV SCH (08:55)
[2024-10-20] MEDS: INSULIN LISPRO 100 UNIT/ML INSULN.PEN MULTI-DOSE SQ SCH (11:45)
[2024-10-21] VITALS (18 sets, daily range): BP systolic 81–143; BP diastolic 51–84; PULSE 78–104; RESP 11–21; TEMP 97.7–99; O2SAT 90–96
[2024-10-21 02:17] LABS: MEAN PLATELET VOLUME 10.1 FL (7.4-10.4); RED CELL DISTRIBUTION WIDTH 13.0 % (11.5-14.5)
[2024-10-21 02:34] LABS: CREATININE 1.20 MG/DL (0.60-1.10); PHOSPHORUS 3.7 MG/DL (2.3-4.5); TOTAL CARBON DIOXIDE 28.7 MMOL/L (24-32); eCRCL 59 ML/MIN; eGFR 61 ML/MIN
--- NOTE | 2024-10-21 05:52 | RADIOLOGY REPORT ---
CHEST RADIOGRAPH Indication: POST OP Technique: Single frontal view of the chest was obtained COMPARISON: DI CHEST,SINGLE VIEW on DOS: 10/20/24, DI CHEST,SINGLE VIEW on DOS: 10/19/24, DI CHEST,TWO VIEWS on DOS: 10/17/24 FINDINGS: Lines and Tubes: Unchanged. Lungs: Mild right basilar atelectasis. The lungs are otherwise clear. Pleura: No effusion. No pneumothorax. Cardiomediastinal contours: Unremarkable Bones: Unremarkable IMPRESSION: 1. No acute cardiopulmonary process. 2. Right basilar atelectasis. 3. Lines and tubes unchanged.
[2024-10-21] MEDS: pantoprazole 40mg Tablet.DR PO SCH (07:00)
--- NOTE | 2024-10-21 08:05 | PROGRESS NOTE ---
Progress Note CV Providers to CC ~ Antibiotics Ordered?: No Subjective Subjective S/P CABG x 5 POD # 2. Alert, up to chair. Pain has been better controlled on current Rx. Walking well. Objective Vitals Vital Signs Date Time Temp Pulse Resp B/P (MAP) Pulse Ox O2 Delivery O2 Flow Rate FiO2 10/21/24 07:00 88 14 108/64 (79) 94 Nasal Cannula 1.0 10/21/24 05:00 98.2 10/20/24 08:00 28 Lab Results: 10/21/24 0135 10/21/24 0130 Objective Lungs - fairly clear Heart - RRR, SR Abd/Extr - OK Incisions - CDI Coagulation Studies Laboratory Tests Test 10/19/24 09:19 10/19/24 12:06 10/19/24 12:40 Patient Sex (Coag) M Patient Height (Coag) 172cm Patient Weight (Coag) 77.0k KG Patient Blood Volume 5557 ML Pump Volume 1500 ML Total Blood Volume 7057 ML Projected Heparin Concentration 3.5 MG/KG Heparin [place] 76 Calculated Heparin Bolus 32302 UNITS Activated Coagulation Time Baseline 121 SEC (101-148) Activated Coag Time 1.70 U/mL 244 SEC (193-297) Activated Coag Time 2.84 U/mL 313 SEC (260-420) Heparin Level (COAG) 0 MG/KG Calculated Heparin Req (Hep Assay) 94094 UNITS Calculated Protamine Req (Hep Assay 0 MG Activated Clotting Time 109 SEC (101-148) Prothrombin Time 11.2 SECONDS (9.0-12.0) INR International Normalized Ratio 1.1 INR Activated Partial Thromboplast Time 23 SECONDS (22-32) Coagulation Comments Cardiac Rhythm: Sinus Rhythm, Sinus Tachycardia Problem\Assessment\Plan Additional Plan POD # [address] output decreased, serous. Mediastinal tube still has air leak. DC Pleural drain and PW. DC Valerie CL To PCU. Sepsis Screening Reassessment Date: Oct 21, 2024 Supervising Co-signing Provider: KALLI Barkley Oct 21, 2024 08:05
[2024-10-21] MEDS ORDERED: potassium Cl 20 mEq SR tablet PO PRN (08:10)
[2024-10-21] MEDS ORDERED: potassium Cl 20mEq/100mL bag 100 ML IV PRN (08:10)
[2024-10-21] MEDS ORDERED: potassium Cl 40MEQ/1/2NS 520ml 520 ML IV PRN (08:10)
[2024-10-21] MEDS ORDERED: potassium Cl 40MEQ/270ML bag 250 ML IV PRN (08:10)
[2024-10-21] MEDS ORDERED: magnesium sulf-water 4G/100mL 100 ML IV PRN (08:10)
[2024-10-21] MEDS ORDERED: potassium CL 10mEq/100ml bag 100 ML IV PRN (08:10)
[2024-10-21] MEDS: heparin, porcine 5000 units/ml vial SQ SCH (16:09)
[2024-10-21] MEDS: lactose-reduced food (Ensure High Protein) 237ml bottle PO SCH (17:30)
[2024-10-21] MEDS: magnesium Cl slow-release 64mg tablet PO SCH (20:00)
[2024-10-22] VITALS (10 sets, daily range): BP systolic 108–121; BP diastolic 68–75; PULSE 82–99; RESP 14–16; TEMP 96.6–98.7; O2SAT 92–96
[2024-10-22 06:42] LABS: CREATININE 0.70 MG/DL (0.60-1.10); TOTAL CARBON DIOXIDE 31.2 MMOL/L (24-32); eCRCL 102 ML/MIN; eGFR > 90 ML/MIN
[2024-10-22 06:47] LABS: MEAN PLATELET VOLUME 9.9 FL (7.4-10.4); RED CELL DISTRIBUTION WIDTH 13.4 % (11.5-14.5)
--- NOTE | 2024-10-22 07:35 | RADIOLOGY REPORT ---
CHEST RADIOGRAPH Indication: POST OP Technique: Single frontal view of the chest was obtained Comparison: DI CHEST,SINGLE VIEW on DOS: 10/21/24, DI CHEST,SINGLE VIEW on DOS: 10/20/24, DI CHEST,SINGLE VIEW on DOS: 10/19/24, DI CHEST,TWO VIEWS on DOS: 10/17/24 FINDINGS: Lines and Tubes: None Lungs: No focal consolidation. Pleura: No effusion. No pneumothorax. Cardiomediastinal contours: Unremarkable Bones: No acute osseous abnormality. IMPRESSION: No acute cardiopulmonary disease.
[2024-10-22] MEDS: magnesium hydroxide 30ml (MOM) UD suspension PO PRN (09:23)
--- NOTE | 2024-10-22 09:52 | PROGRESS NOTE ---
Progress Note CV Providers to CC ~ Antibiotics Ordered?: No Subjective Subjective S/P CABG x 5 POD # 3. He did not rest well last night. Says nurses were checking his VS q1 hour. Otherwise feels better after the pleural tubes came out. His mediastinal tube remains in place and there is a moderate air leak present. Walking well. Eating well. Objective Vitals Vital Signs Date Time Temp Pulse Resp B/P (MAP) Pulse Ox O2 Delivery O2 Flow Rate FiO2 10/22/24 02:00 98.4 91 14 108/68 (81) 92 Room Air 10/21/24 20:00 0 21 Lab Results: 10/22/24 0555 10/22/24 0555 Objective Lungs - clear Heart - RRR, SR Abd/Extr - OK Incisions - CDI Coagulation Studies Laboratory Tests Test 10/19/24 09:19 10/19/24 12:06 10/19/24 12:40 Patient Sex (Coag) M Patient Height (Coag) 172cm Patient Weight (Coag) 77.0k KG Patient Blood Volume 5557 ML Pump Volume 1500 ML Total Blood Volume 7057 ML Projected Heparin Concentration 3.5 MG/KG Heparin [place] 76 Calculated Heparin Bolus 31980 UNITS Activated Coagulation Time Baseline 121 SEC (101-148) Activated Coag Time 1.70 U/mL 244 SEC (193-297) Activated Coag Time 2.84 U/mL 313 SEC (260-420) Heparin Level (COAG) 0 MG/KG Calculated Heparin Req (Hep Assay) 21405 UNITS Calculated Protamine Req (Hep Assay 0 MG Activated Clotting Time 109 SEC (101-148) Prothrombin Time 11.2 SECONDS (9.0-12.0) INR International Normalized Ratio 1.1 INR Activated Partial Thromboplast Time 23 SECONDS (22-32) Coagulation Comments Cardiac Rhythm: Sinus Rhythm, Sinus Tachycardia Problem\Assessment\Plan Additional Plan POD # [address] to water seal. Continue rehab. Sepsis Screening Reassessment Date: Oct 22, 2024 Supervising Co-signing Provider: KALLI Barkley Oct 22, 2024 09:52
[2024-10-22] MEDS: WHISKEY PO SCH (17:20)
[2024-10-22] MEDS: HYDROcodone/acetaminophen 10/325mg tab PO PRN (22:21)
[2024-10-23] VITALS (11 sets, daily range): BP systolic 103–120; BP diastolic 63–71; PULSE 80–102; RESP 14–20; TEMP 97.3–98.5; O2SAT 93–96
[2024-10-23 05:34] LABS: MEAN PLATELET VOLUME 9.5 FL (7.4-10.4); RED CELL DISTRIBUTION WIDTH 13.1 % (11.5-14.5)
[2024-10-23 05:45] LABS: CREATININE 0.86 MG/DL (0.60-1.10); TOTAL CARBON DIOXIDE 31.3 MMOL/L (24-32); eCRCL 83 ML/MIN; eGFR 89 ML/MIN
--- NOTE | 2024-10-23 06:52 | RADIOLOGY REPORT ---
CHEST RADIOGRAPH Indication: s/p CABG, air leak Technique: Single frontal view of the chest was obtained COMPARISON: DI CHEST,SINGLE VIEW on DOS: 10/22/24, DI CHEST,SINGLE VIEW on DOS: 10/21/24, DI CHEST,SINGLE VIEW on DOS: 10/20/24, DI CHEST,SINGLE VIEW on DOS: 10/19/24, DI CHEST,TWO VIEWS on DOS: 10/17/24 FINDINGS: Lines and Tubes: None Lungs: Clear Pleura: No effusion. No pneumothorax. Cardiomediastinal contours: Unremarkable status post median sternotomy Bones: Unremarkable IMPRESSION: 1. No acute cardiopulmonary disease.
[2024-10-23] MEDS: potassium Cl 20 mEq SR tablet PO PRN (07:54)
[2024-10-23] MEDS: magnesium sulf-water 2g/50mL 50 ML IV PRN (08:06)
--- NOTE | 2024-10-23 08:43 | PROGRESS NOTE ---
Progress Note CV Providers to CC ~ Antibiotics Ordered?: No Subjective Subjective S/P CABG X 5 POD # 4. Rested better last night. Walking well. Someone told him he would have to go to rehab prior to going home. However there is no need for this. +BM's, still a bit marginal appetite. Objective Vitals Vital Signs Date Time Temp Pulse Resp B/P (MAP) Pulse Ox O2 Delivery O2 Flow Rate FiO2 10/23/24 08:06 15 10/23/24 07:55 90 10/23/24 06:00 97.3 112/70 (84) 96 Room Air 10/22/24 20:30 0 21 Lab Results: 10/23/24 0511 10/23/24 0511 Objective Lungs - fairly clear Heart - RRR, SR Abd/extr - OK Incisions - CDI Coagulation Studies Laboratory Tests Test 10/19/24 09:19 10/19/24 12:06 10/19/24 12:40 Patient Sex (Coag) M Patient Height (Coag) 172cm Patient Weight (Coag) 77.0k KG Patient Blood Volume 5557 ML Pump Volume 1500 ML Total Blood Volume 7057 ML Projected Heparin Concentration 3.5 MG/KG Heparin [place] 76 Calculated Heparin Bolus 26189 UNITS Activated Coagulation Time Baseline 121 SEC (101-148) Activated Coag Time 1.70 U/mL 244 SEC (193-297) Activated Coag Time 2.84 U/mL 313 SEC (260-420) Heparin Level (COAG) 0 MG/KG Calculated Heparin Req (Hep Assay) 98327 UNITS Calculated Protamine Req (Hep Assay 0 MG Activated Clotting Time 109 SEC (101-148) Prothrombin Time 11.2 SECONDS (9.0-12.0) INR International Normalized Ratio 1.1 INR Activated Partial Thromboplast Time 23 SECONDS (22-32) Coagulation Comments Cardiac Rhythm: Sinus Rhythm Problem\Assessment\Plan Additional Plan POD # [address] still with Mod air leak CT was clamped this morning. I will monitor closely and repeat a CXR by noon if no symptom or O2 sat changes. Continue rehab. Sepsis Screening Reassessment Date: Oct 23, 2024 Supervising Co-signing Provider: KALLI Marcelino Oct 23, 2024 08:43
--- NOTE | 2024-10-23 09:15 | RADIOLOGY REPORT ---
CHEST RADIOGRAPH Indication: monitor change after clamping chest tube Technique: Single frontal view of the chest was obtained COMPARISON: DI CHEST,SINGLE VIEW on DOS: 10/23/24, DI CHEST,SINGLE VIEW on DOS: 10/22/24, DI CHEST,SINGLE VIEW on DOS: 10/21/24, DI CHEST,SINGLE VIEW on DOS: 10/20/24, DI CHEST,SINGLE VIEW on DOS: 10/19/24 FINDINGS: Lines and Tubes: Median sternotomy Lungs: Clear Pleura: No effusion. Small right apical pneumothorax, approximately 25%. Cardiomediastinal contours: Unremarkable Bones: Unremarkable IMPRESSION: Small right apical pneumothorax, approximately 25%.
[2024-10-24] VITALS (10 sets, daily range): BP systolic 104–111; BP diastolic 63–69; PULSE 87–110; RESP 12–18; TEMP 97.2–98.5; O2SAT 91–99
[2024-10-24 06:08] LABS: MEAN PLATELET VOLUME 9.2 FL (7.4-10.4); RED CELL DISTRIBUTION WIDTH 13.1 % (11.5-14.5)
[2024-10-24 06:18] LABS: CREATININE 0.80 MG/DL (0.60-1.10); TOTAL CARBON DIOXIDE 30.0 MMOL/L (24-32); eCRCL 89 ML/MIN; eGFR > 90 ML/MIN
--- NOTE | 2024-10-24 08:42 | RADIOLOGY REPORT ---
EXAM: DI CHEST,SINGLE VIEW Indication: s/p CABG, air leak Technique: Single frontal view of the chest was obtained Comparison: DI CHEST,SINGLE VIEW on DOS: 10/23/24, DI CHEST,SINGLE VIEW on DOS: 10/23/24, DI CHEST,SINGLE VIEW on DOS: 10/22/24, DI CHEST,SINGLE VIEW on DOS: 10/21/24, DI CHEST,SINGLE VIEW on DOS: 10/20/24 FINDINGS: Lines and Tubes: None Lungs: No focal consolidation. Pleura: Trace right apical pneumothorax, decreased compared to prior exam. Cardiomediastinal contours: Unremarkable. Subcutaneous gas is visualized in the bilateral neck Bones: No acute osseous abnormality. IMPRESSION: Interval decrease in trace right apical pneumothorax compared to prior exam.
--- NOTE | 2024-10-24 09:20 | PROGRESS NOTE ---
Progress Note CV Providers to CC ~ Antibiotics Ordered?: No Subjective Subjective S/P CABG x 5 POD # 5. Alert, up to chair for breakfast. Family present. No new complaints. Voice is sounding better today. Objective Vitals Vital Signs Date Time Temp Pulse Resp B/P (MAP) Pulse Ox O2 Delivery O2 Flow Rate FiO2 10/24/24 08:01 17 10/24/24 08:00 87 10/24/24 07:58 99 Room Air* 0 21 10/24/24 02:00 97.4 106/67 (80) Lab Results: 10/24/24 0508 10/24/24 0508 Objective Lungs - fairly clear Heart - RRR, SR Abd/Extr - OK Incisions - CDI Coagulation Studies Laboratory Tests Test 10/19/24 09:19 10/19/24 12:06 10/19/24 12:40 Patient Sex (Coag) M Patient Height (Coag) 172cm Patient Weight (Coag) 77.0k KG Patient Blood Volume 5557 ML Pump Volume 1500 ML Total Blood Volume 7057 ML Projected Heparin Concentration 3.5 MG/KG Heparin [place] 76 Calculated Heparin Bolus 56898 UNITS Activated Coagulation Time Baseline 121 SEC (101-148) Activated Coag Time 1.70 U/mL 244 SEC (193-297) Activated Coag Time 2.84 U/mL 313 SEC (260-420) Heparin Level (COAG) 0 MG/KG Calculated Heparin Req (Hep Assay) 20633 UNITS Calculated Protamine Req (Hep Assay 0 MG Activated Clotting Time 109 SEC (101-148) Prothrombin Time 11.2 SECONDS (9.0-12.0) INR International Normalized Ratio 1.1 INR Activated Partial Thromboplast Time 23 SECONDS (22-32) Coagulation Comments Cardiac Rhythm: Sinus Rhythm Problem\Assessment\Plan Additional Plan POD # 5 SR Air leak has diminished significantly. He does have some subcut emphysema in the neck. More prominent R side. CXR shows trace R apical PTX Continue chest tube to water seal Sepsis Screening Reassessment Date: Oct 24, 2024 Supervising MD Co-signing Provider: KALLI Marcelino Oct 24, 2024 09:20
[2024-10-24] MEDS: lactose-reduced food (Ensure Enlive) - 237ml bottle PO SCH (18:20)
[2024-10-25] VITALS (11 sets, daily range): BP systolic 94–136; BP diastolic 54–94; PULSE 83–108; RESP 14–20; TEMP 97.5–98.4; O2SAT 94–98
--- NOTE | 2024-10-25 06:41 | RADIOLOGY REPORT ---
CHEST RADIOGRAPH Indication: s/p CABG, air leak Technique: Single frontal view of the chest was obtained COMPARISON: DI CHEST,SINGLE VIEW on DOS: 10/24/24, DI CHEST,SINGLE VIEW on DOS: 10/23/24, DI CHEST,SINGLE VIEW on DOS: 10/23/24, DI CHEST,SINGLE VIEW on DOS: 10/22/24, DI CHEST,SINGLE VIEW on DOS: 10/21/24 FINDINGS: Lines and Tubes: None Lungs: No evidence of focal consolidation. Mild chronic appearing right lower lung zone scarring/atelectasis. Pleura: No effusion. No pneumothorax. Cardiomediastinal contours: Unremarkable status post median sternotomy. Bones: Unremarkable. Stable appearing right neck and supraclavicular subcutaneous emphysema. IMPRESSION: 1. No acute cardiopulmonary process. 2. Stable right neck/ supraclavicular subcutaneous emphysema.
[2024-10-25 06:52] LABS: CREATININE 0.84 MG/DL (0.60-1.10); TOTAL CARBON DIOXIDE 26.9 MMOL/L (24-32); eCRCL 85 ML/MIN; eGFR > 90 ML/MIN
--- NOTE | 2024-10-25 12:53 | PROGRESS NOTE ---
Progress Note CV Providers to CC ~ Antibiotics Ordered?: No Subjective Subjective POD 6 CABG x 5, Persistent intermitent air leak Objective Vitals Vital Signs Date Time Temp Pulse Resp B/P (MAP) Pulse Ox O2 Delivery O2 Flow Rate FiO2 10/25/24 11:00 97.6 91 16 94/54 (67) 95 Room Air 10/25/24 08:30 0 21 Lab Results: 10/24/24 0508 10/25/24 0602 Objective PE without change, SQ emphysema crepitus right neck - asymptomatic, CXR without pneumothorax Coagulation Studies Laboratory Tests Test 10/19/24 09:19 10/19/24 12:06 10/19/24 12:40 Patient Sex (Coag) M Patient Height (Coag) 172cm Patient Weight (Coag) 77.0k KG Patient Blood Volume 5557 ML Pump Volume 1500 ML Total Blood Volume 7057 ML Projected Heparin Concentration 3.5 MG/KG Heparin [place] 76 Calculated Heparin Bolus 62007 UNITS Activated Coagulation Time Baseline 121 SEC (101-148) Activated Coag Time 1.70 U/mL 244 SEC (193-297) Activated Coag Time 2.84 U/mL 313 SEC (260-420) Heparin Level (COAG) 0 MG/KG Calculated Heparin Req (Hep Assay) 56285 UNITS Calculated Protamine Req (Hep Assay 0 MG Activated Clotting Time 109 SEC (101-148) Prothrombin Time 11.2 SECONDS (9.0-12.0) INR International Normalized Ratio 1.1 INR Activated Partial Thromboplast Time 23 SECONDS (22-32) Coagulation Comments Cardiac Rhythm: Sinus Rhythm Problem\Assessment\Plan Additional Plan Persistent slow intermitent air leak, Continue chest tube to waterseal, Check CXR in AM GEORGE RODRIGUEZ MD Oct 25, 2024 12:52
[2024-10-25] MEDS: heparin, porcine 5000 units/ml vial SQ SCH (21:10)
[2024-10-26] VITALS (8 sets, daily range): BP systolic 100–112; BP diastolic 58–72; PULSE 92–116; RESP 12–18; TEMP 96.9–98.7; O2SAT 92–98
--- NOTE | 2024-10-26 06:13 | RADIOLOGY REPORT ---
CHEST RADIOGRAPH Indication: s/p CABG, air leak Technique: Single frontal view of the chest was obtained COMPARISON: DI CHEST,SINGLE VIEW on DOS: 10/25/24, DI CHEST,SINGLE VIEW on DOS: 10/24/24, DI CHEST,SINGLE VIEW on DOS: 10/23/24, DI CHEST,SINGLE VIEW on DOS: 10/23/24, DI CHEST,SINGLE VIEW on DOS: 10/22/24 FINDINGS: Lines and Tubes: None Lungs: No evidence of focal consolidation. Stable chronic appearing right lower lung zone scarring/atelectasis. Pleura: No effusion. No pneumothorax. Cardiomediastinal contours: Unremarkable status post median sternotomy. Bones: Unremarkable. Slight interval decrease in right lateral neck and supraclavicular subcutaneous emphysema. IMPRESSION: 1. No acute cardiopulmonary disease. 2. Slight interval decrease in right lateral neck and supraclavicular subcutaneous emphysema.
[2024-10-26 07:21] LABS: CREATININE 0.90 MG/DL (0.60-1.10); TOTAL CARBON DIOXIDE 29.9 MMOL/L (24-32); eCRCL 79 ML/MIN; eGFR 85 ML/MIN
--- NOTE | 2024-10-26 10:15 | PROGRESS NOTE ---
Progress Note CV Providers to CC ~ Antibiotics Ordered?: No Subjective Subjective S/P CABG x 5 POD # 7. He is alert. Tired of being in the hospital. Walking well, eating well. Air leak persists but is intermittent. Objective Vitals Vital Signs Date Time Temp Pulse Resp B/P (MAP) Pulse Ox O2 Delivery O2 Flow Rate FiO2 10/26/24 09:14 15 10/26/24 08:12 90 10/26/24 08:00 95 Room Air 10/26/24 08:00 0 21 10/26/24 06:00 96.9 105/66 (79) Lab Results: 10/24/24 0508 10/26/24 0652 Objective Lungs - clear Heart - RRR, SR Abd/Extr - OK Incisions - CDI dsgs Coagulation Studies Laboratory Tests Test 10/19/24 09:19 10/19/24 12:06 10/19/24 12:40 Patient Sex (Coag) M Patient Height (Coag) 172cm Patient Weight (Coag) 77.0k KG Patient Blood Volume 5557 ML Pump Volume 1500 ML Total Blood Volume 7057 ML Projected Heparin Concentration 3.5 MG/KG Heparin [place] 76 Calculated Heparin Bolus 74410 UNITS Activated Coagulation Time Baseline 121 SEC (101-148) Activated Coag Time 1.70 U/mL 244 SEC (193-297) Activated Coag Time 2.84 U/mL 313 SEC (260-420) Heparin Level (COAG) 0 MG/KG Calculated Heparin Req (Hep Assay) 79162 UNITS Calculated Protamine Req (Hep Assay 0 MG Activated Clotting Time 109 SEC (101-148) Prothrombin Time 11.2 SECONDS (9.0-12.0) INR International Normalized Ratio 1.1 INR Activated Partial Thromboplast Time 23 SECONDS (22-32) Coagulation Comments Cardiac Rhythm: Sinus Rhythm Problem\Assessment\Plan Additional Plan POD # 7 SR CV stable Persistent air leak Change pleurevac. Continue to water seal Sepsis Screening Reassessment Date: Oct 26, 2024 Supervising Co-signing Provider: KALLI Marcelino Oct 26, 2024 10:15
[2024-10-27] VITALS (10 sets, daily range): BP systolic 97–109; BP diastolic 61–76; PULSE 89–110; RESP 15–18; TEMP 97.6–99.4; O2SAT 95–98
[2024-10-27 08:19] LABS: CREATININE 0.92 MG/DL (0.60-1.10); TOTAL CARBON DIOXIDE 28.7 MMOL/L (24-32); eCRCL 77 ML/MIN; eGFR 83 ML/MIN
--- NOTE | 2024-10-27 08:49 | RADIOLOGY REPORT ---
CHEST RADIOGRAPH Indication: s/p CABG, air leak Technique: Single frontal view of the chest was obtained Comparison: DI CHEST,SINGLE VIEW on DOS: 10/26/24, DI CHEST,SINGLE VIEW on DOS: 10/25/24, DI CHEST,SINGLE VIEW on DOS: 10/24/24, DI CHEST,SINGLE VIEW on DOS: 10/23/24, DI CHEST,SINGLE VIEW on DOS: 10/23/24, DI CHEST,SINGLE VIEW on DOS: 10/26/24 FINDINGS: Lines and Tubes: None Lungs: No evidence of focal consolidation. Stable chronic appearing right lower lung zone scarring/atelectasis. Pleura: No effusion. No pneumothorax. Cardiomediastinal contours: Unremarkable status post median sternotomy. Bones: Unremarkable. Slight interval decrease in right lateral neck and supraclavicular subcutaneous emphysema. IMPRESSION: 1. No acute cardiopulmonary disease. 2. Slight interval decrease in right lateral neck and supraclavicular subcutaneous emphysema.
--- NOTE | 2024-10-27 09:56 | PROGRESS NOTE ---
Progress Note CV Providers to CC ~ Antibiotics Ordered?: No Subjective Subjective S/P CABG X 5 POD # 8. He is in NAD. Air leak has improved. CXR shows no PTX and slowly resolving subcut emphysema. Objective Vitals Vital Signs Date Time Temp Pulse Resp B/P (MAP) Pulse Ox O2 Delivery O2 Flow Rate FiO2 10/27/24 08:38 101 16 95 Room Air* 0 21 10/27/24 06:00 97.6 103/66 (78) Lab Results: 10/24/24 0508 10/27/24 0715 Objective Lungs - clear Heart - RRR, SR Abd/Extr - OK Incisions - CDI Coagulation Studies Laboratory Tests Test 10/19/24 09:19 10/19/24 12:06 10/19/24 12:40 Patient Sex (Coag) M Patient Height (Coag) 172cm Patient Weight (Coag) 77.0k KG Patient Blood Volume 5557 ML Pump Volume 1500 ML Total Blood Volume 7057 ML Projected Heparin Concentration 3.5 MG/KG Heparin [place] 76 Calculated Heparin Bolus 47606 UNITS Activated Coagulation Time Baseline 121 SEC (101-148) Activated Coag Time 1.70 U/mL 244 SEC (193-297) Activated Coag Time 2.84 U/mL 313 SEC (260-420) Heparin Level (COAG) 0 MG/KG Calculated Heparin Req (Hep Assay) 99364 UNITS Calculated Protamine Req (Hep Assay 0 MG Activated Clotting Time 109 SEC (101-148) Prothrombin Time 11.2 SECONDS (9.0-12.0) INR International Normalized Ratio 1.1 INR Activated Partial Thromboplast Time 23 SECONDS (22-32) Coagulation Comments Cardiac Rhythm: Sinus Rhythm Problem\Assessment\Plan Additional Plan POD # 8 SR CV stable Air leak persists but improving. CT today. Sepsis Screening Reassessment Date: Oct 27, 2024 Supervising MD Co-signing Provider: KALLI Marcelino Oct 27, 2024 09:56
--- NOTE | 2024-10-27 13:04 | RADIOLOGY REPORT ---
EXAM: CT CT CHEST INDICATION: s/p CABG TECHNIQUE: Noncontrast axial images of the chest have been obtained along with coronal and sagittal reformatted images. All CT scans at this facility use dose modulation, iterative reconstruction, and/or weight based dosing when appropriate to reduce radiation dose to as low as reasonably achievable. COMPARISON: None FINDINGS: LOWER NECK: Unremarkable LYMPH NODES/MEDIASTINUM: No abnormal lymph nodes by CT size criteria. Postsurgical changes with overlying mediastinal surgical drain. No abnormal drainable fluid collection. CARDIOVASCULAR: Normal cardiac size. No pericardial effusion. No aneurysmal dilatation of the great vessels. Coronary artery calcifications. postsurgical changes related to recent coronary artery bypass graft surgery UPPER ABDOMEN: Liver calcifications benign-appearing cysts of the right liver. MUSCULOSKELETAL: No acute fracture or aggressive focal osseous lesion. Multilevel degenerative change of the visualized spine. CHEST WALL: Extensive soft tissue emphysema along the jjucn-[id number]-left upper chest wall extending into the neck. Scattered pneumomediastinum. Overall imaging findings likely within normal limits. LUNG PARENCHYMA/PLEURAL SPACE: Trace bilateral pneumothoraces. Inconspicuous small area of likely postobstructive atelectasis in the inferior lingula, subsegmental. IMPRESSION: 1. Postsurgical changes related to recent coronary artery bypass graft surgery. 2. Trace bilateral pneumothoraces. 3. Scattered pneumomediastinum and soft tissue emphysema.
[2024-10-28] VITALS (9 sets, daily range): BP systolic 96–112; BP diastolic 62–72; PULSE 56–105; RESP 12–20; TEMP 97.3–98.8; O2SAT 93–100
[2024-10-28 06:17] LABS: CREATININE 0.87 MG/DL (0.60-1.10); TOTAL CARBON DIOXIDE 28.7 MMOL/L (24-32); eCRCL 82 ML/MIN; eGFR 88 ML/MIN
--- NOTE | 2024-10-28 08:43 | RADIOLOGY REPORT ---
CHEST RADIOGRAPH Indication: s/p CABG, air leak Technique: Single frontal view of the chest was obtained Comparison: CT CT CHEST on DOS: 10/27/24, DI CHEST,SINGLE VIEW on DOS: 10/27/24, DI CHEST,SINGLE VIEW on DOS: 10/26/24, DI CHEST,SINGLE VIEW on DOS: 10/25/24, DI CHEST,SINGLE VIEW on DOS: 10/24/24, DI CHEST,SINGLE VIEW on DOS: 10/27/24 FINDINGS: Lines and Tubes: None Lungs: No evidence of focal consolidation. Stable chronic appearing right lower lung zone scarring/atelectasis. Pleura: No effusion. No pneumothorax. Cardiomediastinal contours: Unremarkable status post median sternotomy. Bones: Unremarkable. Slight interval decrease in right lateral neck and supraclavicular subcutaneous emphysema. IMPRESSION: 1. No acute cardiopulmonary disease. 2. Slight interval decrease in right lateral neck and supraclavicular subcutaneous emphysema.
--- NOTE | 2024-10-28 09:37 | PROGRESS NOTE ---
Progress Note CV Providers to CC ~ Antibiotics Ordered?: No Subjective Subjective S/P CABG X 5 POD # 9. Alert, NAD. He has had some stress related to dealing with financial pressures of so much time off work. Today he feels great otherwise. CT yesterday demonstrated very small apical/ medial pneumothoracies bilat. Chest tube was re-connected to suction at 20cm. The air leak is vary small and occaisonal at this point. Objective Vitals Vital Signs Date Time Temp Pulse Resp B/P (MAP) Pulse Ox O2 Delivery O2 Flow Rate FiO2 10/28/24 09:20 97 13 112/72 (85) Room Air 10/28/24 07:00 95 10/28/24 06:00 98.3 95 10/27/24 20:00 0 Lab Results: 10/24/24 0508 10/28/24 0520 Objective Lungs - clear Heart - RRR, SR Abd/Extr - OK Incisions - CDI Coagulation Studies Laboratory Tests Test 10/19/24 09:19 10/19/24 12:06 10/19/24 12:40 Patient Sex (Coag) M Patient Height (Coag) 172cm Patient Weight (Coag) 77.0k KG Patient Blood Volume 5557 ML Pump Volume 1500 ML Total Blood Volume 7057 ML Projected Heparin Concentration 3.5 MG/KG Heparin [place] 76 Calculated Heparin Bolus 62334 UNITS Activated Coagulation Time Baseline 121 SEC (101-148) Activated Coag Time 1.70 U/mL 244 SEC (193-297) Activated Coag Time 2.84 U/mL 313 SEC (260-420) Heparin Level (COAG) 0 MG/KG Calculated Heparin Req (Hep Assay) 09761 UNITS Calculated Protamine Req (Hep Assay 0 MG Activated Clotting Time 109 SEC (101-148) Prothrombin Time 11.2 SECONDS (9.0-12.0) INR International Normalized Ratio 1.1 INR Activated Partial Thromboplast Time 23 SECONDS (22-32) Coagulation Comments Cardiac Rhythm: Sinus Rhythm, Sinus Tachycardia Problem\Assessment\Plan Additional Plan POD # 9 CV stable Labs stable Minimal air leak. I spoke with Dr. Donahue who recommended one more day on suction and then plan to clamp the tube in AM and remove tube if lung remains expanded. Sepsis Screening Reassessment Date: Oct 28, 2024 Supervising Co-signing Provider: KALLI Barkley Oct 28, 2024 09:37
[2024-10-29 02:00] VITALS: BP 95/56; PULSE 73; RESP 16; TEMP 97.5; O2SAT 97
[2024-10-29 06:00] VITALS: BP 104/64; PULSE 78; RESP 13; TEMP 97.6; O2SAT 98
[2024-10-29 07:53] VITALS: RESP 19; O2SAT 96
[2024-10-29 08:00] VITALS: BP 103/65; PULSE 94; RESP 19; TEMP 98.7; O2SAT 96
--- NOTE | 2024-10-29 08:48 | RADIOLOGY REPORT ---
EXAM: DI CHEST,SINGLE VIEW Indication: ptx, air leak Technique: Single frontal view of the chest was obtained Comparison: DI CHEST,SINGLE VIEW on DOS: 10/28/24, CT CT CHEST on DOS: 10/27/24, DI CHEST,SINGLE VIEW on DOS: 10/27/24, DI CHEST,SINGLE VIEW on DOS: 10/26/24, DI CHEST,SINGLE VIEW on DOS: 10/25/24 FINDINGS: Lines and Tubes: None Lungs: No focal consolidation. Pleura: No effusion. No pneumothorax. Cardiomediastinal contours: Unremarkable Bones: No acute osseous abnormality. IMPRESSION: No acute cardiopulmonary disease.
--- NOTE | 2024-10-29 09:06 | PROGRESS NOTE ---
Progress Note CV Providers to CC ~ Antibiotics Ordered?: No Subjective Subjective S/P CABG x 5 POD # 10. Doing great. Family present. Walking well, eating well. Objective Vitals Vital Signs Date Time Temp Pulse Resp B/P (MAP) Pulse Ox O2 Delivery O2 Flow Rate FiO2 10/29/24 08:00 96 Room Air* 0 21 10/29/24 07:53 19 10/29/24 07:37 94 10/29/24 02:00 97.5 95/56 (69) Lab Results: 10/28/24 0520 Objective Lungs - clear, no air leak observed. No subcut emphysema observed. Heart - RRR, SR Abd/Extr - OK Incisions - CDI Coagulation Studies Laboratory Tests Test 10/19/24 09:19 10/19/24 12:06 10/19/24 12:40 Patient Sex (Coag) M Patient Height (Coag) 172cm Patient Weight (Coag) 77.0k KG Patient Blood Volume 5557 ML Pump Volume 1500 ML Total Blood Volume 7057 ML Projected Heparin Concentration 3.5 MG/KG Heparin [place] 76 Calculated Heparin Bolus 15593 UNITS Activated Coagulation Time Baseline 121 SEC (101-148) Activated Coag Time 1.70 U/mL 244 SEC (193-297) Activated Coag Time 2.84 U/mL 313 SEC (260-420) Heparin Level (COAG) 0 MG/KG Calculated Heparin Req (Hep Assay) 95243 UNITS Calculated Protamine Req (Hep Assay 0 MG Activated Clotting Time 109 SEC (101-148) Prothrombin Time 11.2 SECONDS (9.0-12.0) INR International Normalized Ratio 1.1 INR Activated Partial Thromboplast Time 23 SECONDS (22-32) Coagulation Comments Cardiac Rhythm: Sinus Rhythm, Sinus Tachycardia Problem\Assessment\Plan Additional Plan POD # 10 SR No air leak observed. Clamp CT Check CXR at 1200 today. DC drain if no PTX Sepsis Screening Reassessment Date: Oct 29, 2024 Supervising Co-signing Provider: KALLI Jones Oct 29, 2024 09:06
[2024-10-29 11:54] VITALS: BP 104/67; PULSE 100; RESP 16; TEMP 98.6; O2SAT 97
[2024-10-29] MEDS ORDERED: ASPI81TA53 PO (13:21)
[2024-10-29] MEDS ORDERED: HYDR-3972 PO (13:21)
[2024-10-29] MEDS ORDERED: LOP12.5T PO ×2 (13:21→13:30)
--- NOTE | 2024-10-29 14:59 | DISCHARGE SUMMARY ---
DATE OF DISCHARGE: 10/29/2024 DICTATING PHYSICIAN: Ricardo Ybarra DATE OF DISCHARGE: 10/29/2024 ADMITTING PHYSICIAN: Fish Donahue MD DIGITAL MARKETING SPECIALIST: Stephen Barbosa MD PREOPERATIVE DIAGNOSES: Severe multivessel coronary artery disease with a history of hypercholesterolemia and hypertension. Also history of secondhand smoke exposure. DISCHARGE DIAGNOSES: Severe multivessel coronary artery disease with a history of hypercholesterolemia and hypertension. Also history of secondhand smoke exposure. Status post coronary artery bypass graft surgery x 5. COMPLICATIONS: Postoperatively, none. CONDITION ON DISCHARGE: Stable. PROGNOSIS: Good. SUMMARY: This is a very pleasant 63-year-old gentleman who began to note intermittent episodes of anterior chest discomfort associated with exertion several weeks prior to this admission. He was seen by his primary care physician who then referred him to a package delivery driver. Troponins were measured at the time of his primary care visit and were noted to be elevated. He was therefore taken to the cardiac catheterization laboratory for further evaluation and was found to have severe triple vessel coronary artery disease with preserved LV function. He has risk factors as mentioned of hypertension and hyperlipidemia and secondhand smoking. He denies shortness of breath or exertional dyspnea or orthopnea. No history of peripheral vascular disease or intermittent claudications or TIA type symptoms. He does drink alcohol, admitting to drinking 6 drinks per day. He was admitted and taken to the operating room on 10/19/2024, name of the operation was coronary artery bypass graft surgery x 5 with the left internal mammary artery to an OM, the right internal mammary artery to the LAD, reverse saphenous vein graft to the diagonal, and reverse saphenous vein graft to the PDA and posterior left ventricular branch of the right along with endoscopic vein harvesting and transesophageal echocardiography. Following the operation, the patient was transferred to the CICU in stable condition. While the following morning he was awake, alert, extubated, and neurologically intact grossly, he was quite sore. He was administered Toradol along with lidocaine patches and did gain some significant relief. He had a moderate air leak from the chest tubes by postop day 2; however, the overall chest tube output decreased and the mediastinal tube was the only one that had the air leak. Padilla and central line were discontinued. He was transferred to the Progressive Care Unit for further rehabilitation. Unfortunately, his chest tube continued with moderate air leak through the weekend and then began to slow. By Sunday, the air leak was small and intermittent. Chest CT confirmed the presence of 2 tiny apical pneumothoraces. The chest tube was placed back to suction and it subsequently stopped any air leak and the x-ray shows well-expanded lungs. Today, his chest tube was clamped early this morning. Chest x-ray was repeated at noon today and there is no pneumothorax present. Chest tube was discontinued after being unclamped and there was no ronquillo of air back into the Pleur-evac . In fact, no air at all. Today, the most recent laboratory values show a creatinine of 0.87. His most recent H and H was 10.9 and 31.4 with a platelet count of 248. The patient is felt to be stable for discharge home. DISCHARGE PROGRAM: Followup appointment with cardiac surgeon's office in 2 weeks, with his package delivery driver, Dr. Barbosa, in 4 weeks and with his primary physician in 6 weeks. ACTIVITY: As per cardiac rehab instructions. He is instructed to take short showers, to observe sternal precautions. No heavy lifting. No driving. DIET: Regular diet transitioning to a heart healthy diet as tolerated. MEDICATIONS ON DISCHARGE: Include aspirin 81 mg p.o. daily, [place] 10/325 one p.o. every 6 hours p.r.n. pain, Lopressor 12.5 mg p.o. b.i.d., vitamin D3 as at home, 2000 units 1 p.o. daily, glucosamine 500 mg p.o. daily, meloxicam 15 mg p.o. daily, multivitamin 1 tablet p.o. daily, Crestor 10 mg p.o. daily, probiotics as at home. For now, his lisinopril will be held. Ricardo Donahue MD TID: [id number] RECEIPT: [id number] [facility] cc: Fish Donahue MD, Stephen Barbosa MD(User), Primary Care Physician
--- NOTE | 2024-10-29 16:32 | RADIOLOGY REPORT ---
CHEST RADIOGRAPH Indication: PTX, air leak, CT clamped Do @ 12PM Technique: Single frontal view of the chest was obtained COMPARISON: DI CHEST,SINGLE VIEW on DOS: 10/29/24, DI CHEST,SINGLE VIEW on DOS: 10/28/24, CT CT CHEST on DOS: 10/27/24, DI CHEST,SINGLE VIEW on DOS: 10/27/24, DI CHEST,SINGLE VIEW on DOS: 10/26/24 FINDINGS: Lines and Tubes: Median sternotomy Lungs: Clear Pleura: No effusion. No pneumothorax. Cardiomediastinal contours: Unremarkable Bones: Unremarkable IMPRESSION: No appreciable pneumothorax.
--- NOTE | 2024-11-02 01:31 | CARDIOLOGY REPORT ---
DATE OF SERVICE: 10/17/2024 DICTATING PHYSICIAN: Stephen Barbosa MD CARDIAC CATHETERIZATION REPORT DATE OF STUDY: 10/17/2024 PROCEDURES: * Left heart catheterization. * Selective coronary angiography. * Left ventriculography. * Selective left subclavian and nonselective left internal mammary artery angiography. * Selective right subclavian and nonselective right internal mammary artery angiography. * Conscious sedation monitoring time for 15 minutes INDICATION: Non-STEMI. PHYSICIAN: Stephen Barbosa MD DESCRIPTION OF PROCEDURE: After informed consent was obtained, the patient was brought to the cardiac lab intern in a fasting state where the patient was prepped and draped in the usual sterile manner. After adequate anesthesia was obtained using 1% lidocaine to the right wrist, a 5-Samoan sheath was inserted into the right radial artery using a modified Seldinger technique. Thereafter, using a cocktail of heparin, verapamil and nitroglycerin, the cocktail was given via the sheath in the radial artery to prevent coronary vasospasm and for anticoagulation. Next, using an Ultimate-2 catheter, the catheter was advanced under fluoroscopy guidance into the ascending aorta. The catheter was then manipulated to engage the left coronary system and coronary angiography of the left system was obtained. Next, the catheter was disengaged and manipulated to engage the right coronary artery and selective coronary angiography of the right coronary artery was obtained. Thereafter, the catheter was disengaged from the right coronary artery and manipulated to advance into the left ventricle where left ventriculography in the BYNUM position was obtained. The catheter was then removed. Hemostasis was obtained using the radial band. Following diagnostic angiography, Grady 2 catheter was used, and selective left subclavian and nonselective left internal mammary artery angiography as well as right subclavian and nonselective right internal mammary artery angiography was also performed. HEMODYNAMICS: For the patient's hemodynamics, please refer to the event log. There was no significant gradient across the aortic valve and catheter pullback. Left ventricular end diastolic pressure is 10 mmHg. FINDINGS: The left main coronary arteries are short vessel with mild luminal irregularities. The left anterior descending coronary artery is a medium caliber vessel with an ulcerated proximal and an ulcerated 90% mid vessel stenosis. The diagonal branch of the LAD also has tandem 90% stenosis. The circumflex coronary artery is a medium caliber vessel giving off a large obtuse marginal branch. 80% stenosis of the obtuse marginal branch of the circumflex coronary artery is noted. The right coronary artery is ectatic with a 60-70% mid to distal stenosis. Significant osteo disease of the PDA is also noted. Left ventriculography revealed the presence of normal left ventricular function. No significant stenosis of both the right and left subclavian arteries. Normal mammary arteries. IMPRESSION: * Severe 3-vessel coronary artery disease. * Normal left ventricular function. * Left ventricular end diastolic pressure is 10 mmHg. RECOMMENDATION: Surgical revascularization. Stephen Barbosa MD TID: [id number] RECEIPT: [id number] [facility]
== END 2024-10-29 14:00 | disposition home or self-care (01) | DRG 233 ==
LOC: SSTAY O 11:00 → PAS IN 14:35 → PCU 3S 17:03 → CICU 2S 10-19 12:54 → PCU 3S 10-21 17:00
PROVIDERS: ADMIT Student in an Organized Health Care Education/Training Program; ATTEND Student in an Organized Health Care Education/Training Program
PROC: 02100Z8 Bypass Coronary Artery, One Artery from Right Internal Mammary, Open Approach (ICD-10-PCS; 2024-10-19)
PROC: 021209W Bypass Coronary Artery, Three Arteries from Aorta with Autologous Venous Tissue, Open Approach (ICD-10-PCS; 2024-10-19)
PROC: 06BP4ZZ Excision of Right Saphenous Vein, Percutaneous Endoscopic Approach (ICD-10-PCS; 2024-10-19)
PROC: 5A1221Z Performance of Cardiac Output, Continuous (ICD-10-PCS; 2024-10-19)
PROC: B24BZZ4 Ultrasonography of Heart with Aorta, Transesophageal (ICD-10-PCS; 2024-10-19)
PROC: 03HY32Z Insertion of Monitoring Device into Upper Artery, Percutaneous Approach (ICD-10-PCS; 2024-10-19)
PROC: 05HY33Z Insertion of Infusion Device into Upper Vein, Percutaneous Approach (ICD-10-PCS; 2024-10-19)
PROC: B54MZZA Ultrasonography of Right Upper Extremity Veins, Guidance (ICD-10-PCS; 2024-10-19)
PROC: 4A023N7 Measurement of Cardiac Sampling and Pressure, Left Heart, Percutaneous Approach (ICD-10-PCS; 2024-10-19)
PROC: B2111ZZ Fluoroscopy of Multiple Coronary Arteries using Low Osmolar Contrast (ICD-10-PCS; 2024-10-19)
PROC: B2151ZZ Fluoroscopy of Left Heart using Low Osmolar Contrast (ICD-10-PCS; 2024-10-19)
PROC: 02100Z9 Bypass Coronary Artery, One Artery from Left Internal Mammary, Open Approach (ICD-10-PCS; principal; 2024-10-19 08:34)
DX: I21.4 Non-ST elevation (NSTEMI) myocardial infarction (principal); N17.0 Acute kidney failure with tubular necrosis; J93.82 Other air leak; I25.10 Atherosclerotic heart disease of native coronary artery without angina pectoris; E78.00 Pure hypercholesterolemia, unspecified; I10 Essential (primary) hypertension; Y83.8 Other surgical procedures as the cause of abnormal reaction of the patient, or of later complication, without mention of misadventure at the time of the procedure; Y92.89 Other specified places as the place of occurrence of the external cause
CPT/HCPCS: 36415; 36600; 71045; 71046; 71250; 80048; 80053; 82330; 82435; 82800; 82803; 82947; 82948; 83036; 83735; 84100; 84132; 84295; 85018; 85025; 85347; 85610; 85730; 86885; 86900; 86901; 86920; 87081; 93005; 93312; 93325; 93458; 93880; 93970; 94002; 94664; 94668; 94760; 97161; 97530; 99152; A4314; A4333; A4615; A4618; A6213; A6223; A6258; A6449; A7000; A7048; C1751; C1894; G0378; J0131; J0169; J0665; J0690; J1644; J1815; J1885; J1938; J2003; J2150; J2250; J2270; J2405; J2440; J2704; J2720; J2765; J2919; J3010; J3373; J3480; J3490; J7030; J7040; J7050; J7060; J7120; P9045; P9047; Q0163; Q9967